=== PATIENT | female | born 1940 | race Caucasian/White ===

== ENCOUNTER → 2017-01-23 14:21 | Outpatient (CLI) | payer MEDICARE ==
[2015-12-07 08:37] VITALS: BMI 25.8
[~2017-01-23 14:21] MED LIST: ALENDRONATE SOD70 MG PO; BAYER CHEWABLE81 MG PO; CALTRATE 600 M600 M1 PO; CENTRUM COMPLE1 EACH PO; FISH OIL 1,2001 CAP PO; LEVOTHYROXINE50 MCG PO; PLAVIX75 MG; PREDNISONE20 MG PO; SLOW NIACIN PO; VITAMIN C250 MG PO; VITAMIN D3400 UNI1 PO
== END | disposition home or self-care (01) ==
LOC: D.MAMMO 11:15
DX: Z12.31 Encounter for screening mammogram for malignant neoplasm of breast (principal)

== ENCOUNTER → 2018-02-08 19:00 | Outpatient (CLI) | payer MEDICARE ==
[2015-12-07 08:37] VITALS: BMI 25.8
== END | disposition home or self-care (01) ==
LOC: D.MAMMO 01-28 11:45
DX: Z12.31 Encounter for screening mammogram for malignant neoplasm of breast (principal)

== ENCOUNTER 2019-04-09 10:30 | Outpatient (CLI) | payer MEDICARE ==
[2015-12-07 08:37] VITALS: BMI 25.8
== END 2019-04-09 11:00 | disposition home or self-care (01) ==
LOC: D.MAMMO 10:30
PROVIDERS: ATTEND Family Medicine
DX: Z12.31 Encounter for screening mammogram for malignant neoplasm of breast (principal)

== ENCOUNTER 2019-05-06 08:00 | Outpatient (CLI) | payer MEDICARE ==
[2015-12-07 08:37] VITALS: BMI 25.8
== END 2019-05-06 23:59 | disposition home or self-care (01) ==
LOC: D.MAMMO 08:00
PROVIDERS: ATTEND Family Medicine
DX: R92.8 Other abnormal and inconclusive findings on diagnostic imaging of breast (principal)